=== PATIENT | female | born 2000 | race Caucasian/White ===

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

== ENCOUNTER 2019-08-08 05:39 | Emergency (ER) | payer MEDICAID ==
[~2019-08-08] VITALS: Ht 165.1 cm; Wt 115.0 kg
[2019-08-08] MEDS ORDERED: IBUPROFEN 600MG TABLET PO STA (07:17)
[2019-08-08 09:09] VITALS: BP 122/74
== END 2019-08-08 09:10 | disposition home or self-care (01) ==
LOC: ER 06:05
DX: H66.91 Otitis media, unspecified, right ear (principal)
CPT/HCPCS: 71045; 81025; 87070; 87430; 99283

== ENCOUNTER 2021-05-23 19:00 | Emergency (ER) | payer MEDICAID ==
[~2021-05-23] VITALS: Ht 165.1 cm; Wt 132.0 kg
[2021-05-23] MEDS ORDERED: CLONIDINE 0.2MG TABLET PO ONE (21:30)
[2021-05-23] MEDS ORDERED: TRAMADOL 50MG TABLET PO ONE (21:30)
[2021-05-23 23:03] LABS: BASOPHILS % 0.9 % (0.0-2.0); EOSINOPHILS % 1.9 % (0.0-5.0); HEMATOCRIT. 37.8 % (36.0-48.0); HEMOGLOBIN. 12.2 g/dL (12.0-16.0); LYMPHOCYTES % 21.4 % (20.0-50.0); MEAN CORPUSCULAR HEMOGLOBIN 25.8 pg (28.0-32.0); MEAN CORPUSCULAR VOLUME 79.9 fL (81.0-99.0); MEAN PLATELET VOLUME 8.2 fl (7.4-10.4); MONOCYTES % 6.6 % (2.0-8.0); NEUTROPHILS % 69.2 % (40.0-76.0); PLATELET 350 x1000/uL (130-400); RED BLOOD CELL COUNT 4.73 mill/uL (4.2-5.4); RED CELL DISTRIBUTION WIDTH 14.7 % (11.6-14.6)
[2021-05-23 23:09] LABS: CHLORIDE 111 mEq/L (98-107)
[2021-05-23] MEDS ORDERED: ONDANSETRON 4MG ODT PO ONE (23:45)
[2021-05-24 00:26] LABS: CLARITY URINE CLEAR (CLEAR); COLOR URINE YELLOW (YELLOW); KETONES URINE NEGATIVE (NEGATIVE); LEUKOCYTE ESTERASE URINE NEGATIVE (NEGATIVE); NITRITE URINE NEGATIVE (NEGATIVE); OCCULT BLOOD URINE 1+ (NEGATIVE); PROTEIN URINE NEGATIVE (NEGATIVE); SPECIFIC GRAVITY URINE 1.022 (1.005-1.030); UROBILINOGEN URINE 0.2 E.U./dL (0.2-1.0)
[2021-05-24] MEDS ORDERED: IBUP-2029 MT (01:27)
[2021-05-24] MEDS ORDERED: ONDA4TAB11 PO (01:27)
[2021-05-24 01:35] VITALS: BP 142/75
== END 2021-05-24 02:03 | disposition home or self-care (01) ==
LOC: ER 19:00
DX: N94.6 Dysmenorrhea, unspecified (principal)
CPT/HCPCS: 36415; 76705; 76830; 76856; 80048; 81003; 85025; 99285; Q0162